=== PATIENT | female | born 1980 | race Caucasian/White ===

== ENCOUNTER 2025-01-15 23:34 | Emergency (ER) | payer SELFPAY ==
[2025-01-15 23:49] VITALS: BP 167/105; PULSE 75; TEMP 37.1; O2SAT 99; BMI 52.4
--- OUTSIDE RECORDS SUMMARY | 2025-01-15 23:55 | XMS_ITS | Clinical Summary ---
Author Organization [facility] Address [address] [place] [address] Care Team Providers Care Marketing Developer Name Role Phone Unavailable Primary Care Provider Unavailabl e Allergies Active Allergy Reactions Criticality Noted Date Comments Penicillins 12/23/2012 Medications triamcinolone (KENALOG) 0.1 % cream Apply topically 2 times daily. Do not apply to face, in between fingers or toes, and genital area. 1 Tube 9 Active Family History Medical History Relation Name Comments Diabetes Maternal Grandmother Relation Name Status Comments Brother 1 Alive Brother 2 Alive Father Alive Maternal Grandfather Maternal Grandmother Mother Alive Paternal Grandfather Alive Paternal Grandmother Alive Social History Tobacco Use Types Packs/Day Years Used Date Smoking Tobacco: Every Day Cigarettes Smokeless Tobacco: Never Tobacco Cessation:Ready to Q uit: No; Counseling Given: Yes Alcohol Use Standard Drinks/Week Comments Yes 0 (1 standard drink = 0.6 oz pur e alcohol) very rare Comments No Sex and Gender Information Value Date Recorded Sex Assigned at Not on file Legal Sex Female 9:45 PM EST Gender Identity Not on file Sexual Orientation Not on file Last Filed Vital Signs Vital Sign Reading Time Taken Comments Blood Pressure 132/89 02/22/2019 11:39 AM EDT Pulse 71 02/22/2019 11:39 AM EDT Temperature 36.7 C (98 F) 02/22/2019 11:39 AM EDT Respiratory Rate 16 02/22/2019 12:15 PM EDT Oxygen Saturation 99% 12/23/2012 12:33 PM EDT Inhaled Oxygen Concentration - - Weight 99.8 kg (220 lb) 02/22/2019 11:39 AM EDT Height 160 cm (5' 3 ) 02/22/2019 11:39 AM EDT Body Mass Index 38.97 02/22/2019 11:39 AM EDT Plan of Treatment Not on file Insurance [id number] [place] [id number] [employer] [id number] [facility] [id number] [id number]
[2025-01-16 01:36] VITALS: BP 160/107; PULSE 76; TEMP 36.9; O2SAT 99; BMI 51.2
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
[2025-01-16] MEDS: IBUPROFEN 400 MG TABLET 800 MG PO (02:33)
[2025-01-16] MEDS: METHOCARBAMOL 500 MG TABLET PO (02:33)
== END 2025-01-16 02:36 | disposition home or self-care (01) ==
PROVIDERS: Emergency Provider Emergency Medicine; Family Provider Family Medicine
DX: S29.012A Strain of muscle and tendon of back wall of thorax, initial encounter (principal); V49.50XA Passenger injured in collision with unspecified motor vehicles in traffic accident, initial encounter; M54.6 Pain in thoracic spine; M54.2 Cervicalgia
CPT/HCPCS: 99283

== ENCOUNTER 2025-06-18 09:17 | Outpatient (OUT) | payer OTHER, SELFPAY ==
--- NOTE | 2025-06-18 | XR_ITS ---
The [address] [address] Patient Name: WILLIAM MARTINEZ MRN: [id number] date: 1980 Sex: F Assigned Patient Location: [facility] Current Patient Location: [facility] Accession/Order Number: [id number] Exam Date: 06/18/2025 09:42 Report Date: 06/18/2025 11:08 At the request of: LULY RICE Procedure: XR knee RAJESH 4V BILATERAL KNEES - 4 views each COMPARISON: None CLINICAL DATA: Chronic bilateral knee pain, without specific injury. Previous left ACL repair. AP, lateral and both oblique views were obtained. There is no acute fracture or dislocation. There is mild right and moderate left medial tibiofemoral joint compartment narrowing. There is tricompartment marginal spurring, greater on the left. There is an osteochondral loose body which projects at the suprapatellar bursa on the left side. There might also be a loose body at the intercondylar notch of the femur on that side. There is a trace amount of joint fluid, greater on the left. No focal soft tissue swelling is noted. XR/XR knee RAJESH 4V IMPRESSION: DEGENERATIVE CHANGES, LEFT GREATER THAN RIGHT. Impression dictated by: Shahla Mckeon M.D. 06/18/2025 11:08 AM Dictation Location: [place] [address] Electronically authenticated by: [id number] Y Date: 06/18/2025 11:08
== END 2025-06-18 09:18 | disposition home or self-care (01) ==
LOC: RAD 09:18
PROVIDERS: Family Provider Family Medicine; Visit Provider Nurse Practitioner
DX: M25.561 Pain in right knee (principal); Z68.42 Body mass index [BMI] 45.0-49.9, adult; M17.0 Bilateral primary osteoarthritis of knee
CPT/HCPCS: 73564

== ENCOUNTER 2025-07-14 08:18 | Outpatient (OUT) | payer OTHER, SELFPAY ==
--- OUTSIDE RECORDS SUMMARY | 2025-07-14 08:21 | XMS_ITS | Clinical Summary ---
Author Organization [facility] Address [address], [address] [place] [address] Care Team Providers Care Manager House Name Role Phone Unavailable Primary Care Provider Unavailabl e Allergies Active AllergyReactionsCriticalityNoted QmyzHmoopesiMtxabvcdsmn55/07/2013 Medications MedicationSigDispense QuantityRefillsLast FilledStart DateEnd DateStatus triamcinolone (KENALOG) 0.1 % cream Apply topically 2 times daily. Do not apply to face, in between fingers or toes, and genital area. 1 Tube 02/22/2019Active Family History Medical HistoryRelationNameCommentsDiabetesMaternal GrandmotherRelationName StatusCommentsBrother 1AliveBrother 2AliveFatherAliveMaternal Grandfather DeceasedMaternal GrandmotherDeceasedMotherAlivePaternal GrandfatherAlivePaternal GrandmotherAlive Social History Tobacco UseTypesPacks/DayYears UsedDateSmoking Tobacco: Every DayCigarettes Smokeless Tobacco: Never Tobacco Cessation:Ready to Q uit: No; Counseling Given: Yes Alcohol UseStandard Drinks/WeekCommentsYes0 (1 standard drink = 0.6 oz pure alcohol)very rareCommentsNoSex and Gender InformationValueDate Recorded Sex Assigned at BirthNot on fileLegal TayKkjwdr22/10/2013 9:45 PM ESTGender IdentityNot on fileSexual OrientationNot on file Last Filed Vital Signs Vital SignReadingTime TakenCommentsBlood Dhhcryxf241/8907 11:39 AM EDT Aggll4832 11:39 AM RVLBaspuxldysp34.7 ??C (98 ??F)02/22/2019 11:39 AM EDTRespiratory Sctp059002/22/2019 12:15 PM EDTOxygen Xftesnenmj13%12/23/2012 12:33 PM EDTInhaled Oxygen Concentration--Qzefkc99.8 kg (220 lb)02/22/2019 11:39 AM PTXRebgxa754 cm (5' 3 )02/22/2019 11:39 AM EDTBody Mass Index38.9702/22/2019 11:39 AM EDT Plan of Treatment Not on file Insurance [address] [address] [id number] [address] [place] [address]
--- NOTE | 2025-07-14 08:51 | P.CN_ITS ---
Consult Note: HPI Data of Consult Patient: known to practice within the last 3 years Consult date: 07/14/25 Requesting Physician: Naya Law NP Primary Care Provider: Non-Staff Physician, Family Provider: Woody Cooper MD Consult Narrative Reason for consult: bilateral knee pain/OA Narrative: Gini Zavala a pleasant 45 year old female presents for evaluation of chronic bilateral knee pain secondary to OA. notes chronic pain >10 years, no recent injury or trauma. Patient has noted mild relief with tylenol, motrin, meloxicam, heat, ice over the last 6 months. recently started on meloxicam through pcp without side effects, has been working on weight loss. Patient notes pain 1-2/10 increasing to 8-9/10 throbbing aching tenderness. notes pain is increased with standing, walking, pushing, pulling, lifting, stairs, activity, ADLs, and sleep. cc:: CC: Naya Law NP Review of Systems ROS Musculoskeletal Reports: joint pain PFSH PFSH Social History Little interest or pleasure in doing things: not at all Feeling down, depressed, or hopeless: not at all Meds Home Medications and Allergies Home Medications ?Medication ?Instructions ?Recorded ?Confirmed ?Type methocarbamol 750 mg tablet 750 mg PO Q6H PRN pain #30 tabs 01/16/25 Rx Allergies Allergy/AdvReac Type Severity Reaction Status Date / Time Penicillins Allergy Unknown Unknown Verified 01/16/25 01:43 Exam Constitutional Documenting provider has reviewed patient's vital signs: yes Common normals: no apparent distress, oriented x3 and alert General appearance: cooperative HENMT Common normals: normocephalic, hearing grossly normal bilaterally and moist oral mucous membranes Head and scalp: normocephalic Eye Common normals: PERRL Pupil: PERRL Neck & C-Spine Common normals: full ROM General: normal visual inspection Chest Common normals: inspection of chest normal Respiratory Common normals: normal respiratory effort, no retractions and no use of ac cessory muscles Extremity Right lower extremity: knee joint Left lower extremity: knee joint Other: bilateral knees with enlarged proximal diameter, moderate crepitus, mild edema to right knee moderate edema to left knee. increased pain with medial and lateral stress testing. no instability noted Neuro Common normals: oriented x3 Sensorium/orientation: alert Psych Common normals: mental status grossly normal, thought process normal, cooperative, affect normal, speech normal and activity/motor behavior normal Speech: normal speech Thought process: normal thought process Results Additional Findings Additional findings: If on a controlled substance or opioids, I have checked an [place]AR[place] report on this patient and there are no aberrancies noted in the prescribing history.??If on a controlled substance or opioid a drug screen was completed and reviewed within the last year, and if there has not been a drug screen completed we ordered one today to monitor higher risk, state monitored pain medication use. As part of providing excellent, safe, comprehensive care, the following was completed at our patient's visit: 1. A medication reconciliation and review to ensure accurate knowledge of current/active medications, including asking our patients to inform us about any [id number] medications or herbal remedies/nutritional supplements/alternative remedies. 2. A review to specifically ensure our patients have had annual screening for screening for depression, screening for tobacco use, and screening for unhealthy alcohol use. For concerning screenings had a discussion with the patient, provided patient education, and recommended follow-up with primary care provider when appropriate. If patient noted with a risk of falling, they received education on strength, gait, and balance training to prevent future risk of falling. Portions of this note may have been carried over from the previous visit and updated as appropriate. Please note this office utilizes paper charting in addition to the electronic medical record. A list of current medications, vitals, and PMH is available there as the clinical staff outside of myself do not have access to [employer] charting during the clinic day operations. As part of providing quality comprehensive care the current medications, vitals, and PMH were reviewed in the paper chart. Assessment and Plan Assessment and Plan (1) Bilateral knee pain: (2) Bilateral primary osteoarthritis of knee: Plan 45 year old female with chronic bilateral knee pain secondary to OA. patient has failed to benefit from > 6 weeks of heat/ice, tylenol, and nsaids. recent xray consistent with OA, patient has not trialed steroid injections and cannot afford to undergo surgical intervention at this time. continue meloxicam 15mg through pcp. start transdermal therapeutics compound cream #8a BID-QID PRN pain to affected areas, encouraged at least twice daily application initially. Patient failed to benefit from medrol dose pack. proceed with bilateral knee injections with Dr Villanueva. continue weight loss efforts. f/u 2 weeks after injection
== END 2025-07-14 08:19 | disposition home or self-care (01) ==
LOC: PM 08:19
PROVIDERS: Family Provider Family Medicine; Visit Provider Nurse Practitioner
DX: M25.561 Pain in right knee (principal); M25.562 Pain in left knee; M17.0 Bilateral primary osteoarthritis of knee
CPT/HCPCS: G0463